=== PATIENT | female | born 1940 | race Caucasian/White ===

== ENCOUNTER 2023-01-20 10:52 | Day surgery (SDC) | payer MEDICARE ==
[2023-01-16 10:32] LABS: ALBUMIN 4.1 G/DL (3.4-5.0); ANION GAP 9 (8-16); BLOOD UREA NITROGEN 29 MG/DL (7-18); BUN/CREATININE RATIO 23.8 (10.0-20.0); CALCIUM 9.2 MG/DL (8.5-10.1); CHLORIDE 107 MMOL/L (99-107); CREATININE 1.22 MG/DL (0.40-0.90); GLUCOSE 106 MG/DL (70-104); POTASSIUM 3.9 MMOL/L (3.5-5.1); SODIUM 142 MMOL/L (135-145); TOTAL CARBON DIOXIDE 26.3 MMOL/L (24-32); eGFR 42 ML/MIN
[2023-01-16 10:37] LABS: APTT 32 SECONDS (22-32)
[2023-01-16 11:00] LABS: BASOPHILS # (AUTO) 0.1 X10'3 (0-0.2); BASOPHILS % (AUTO) 0.9 % (0-1); EOSINOPHILS # (AUTO) 0.1 X10'3 (0-0.9); EOSINOPHILS % (AUTO) 1.6 % (0-6); HEMATOCRIT 42.4 % (35.0-45.0); HEMOGLOBIN 14.3 g/dl (12.0-16.0); LYMPHOCYTES # (AUTO) 0.9 X10'3 (1.1-4.8); LYMPHOCYTES % (AUTO) 14.3 % (21-51); MEAN CORPUSCULAR HEMOGLOBIN 30.4 PG (27.0-31.0); MEAN CORPUSCULAR HGB CONC 33.7 g/dL (33.0-36.5); MEAN CORPUSCULAR VOLUME 90.1 FL (78-98); MEAN PLATELET VOLUME 10.1 FL (7.4-10.4); MONOCYTES # (AUTO) 0.5 X10'3 (0-0.9); MONOCYTES % (AUTO) 8.5 % (2-12); NEUTROPHILS # (AUTO) 4.7 X10'3 (1.8-7.7); NEUTROPHILS % (AUTO) 74.7 % (42-75); PLATELET COUNT 189 X10'3 (140-440); RED BLOOD COUNT 4.71 X10'6 (4.20-5.60); RED CELL DISTRIBUTION WIDTH 17.9 % (11.5-14.5); WHITE BLOOD COUNT 6.3 X10'3 (4.5-11.0)
[~2023-01-20] VITALS: Ht 162.6 cm; Wt 51.1 kg
[2023-01-20] VITALS (9 sets, daily range): BP systolic 121–155; BP diastolic 55–80
[~2023-01-20 10:52] MED LIST: ATOR40TA71 PO; LEVO88TA39 PO; SACU1TAB PO; SPIR25TA5 PO; WARF4TAB69 PO
[2023-01-20] MEDS ORDERED: fentaNYL/PF 50MCG/1 ML 2ML syringe IV ONE (11:15)
[2023-01-20] MEDS ORDERED: normal saline 1000ml 1,000 ML IV SCH (11:15)
[2023-01-20] MEDS ORDERED: MIDAZolam 1mg/ml 10ml vial IV ONE (11:15)
[2023-01-20] MEDS ORDERED: ATOR40TA72 PO (11:17)
[2023-01-20] MEDS ORDERED: FURO20TA4 PO (11:17)
[2023-01-20] MEDS ORDERED: AMIO200T61 PO (11:17)
[2023-01-20] MEDS ORDERED: METO-384 PO (11:17)
[2023-01-20] MEDS ORDERED: SACU1TAB PO (11:19)
[2023-01-20] MEDS ORDERED: SPIR25TA5 PO (11:19)
== END 2023-01-20 14:05 | disposition home or self-care (01) ==
LOC: SSTAY O 10:52
PROVIDERS: ATTEND Student in an Organized Health Care Education/Training Program
DX: I48.0 Paroxysmal atrial fibrillation (principal); E03.9 Hypothyroidism, unspecified; I35.0 Nonrheumatic aortic (valve) stenosis; I11.0 Hypertensive heart disease with heart failure; I50.22 Chronic systolic (congestive) heart failure; I65.23 Occlusion and stenosis of bilateral carotid arteries; Z98.890 Other specified postprocedural states; Z79.899 Other long term (current) drug therapy; Z79.01 Long term (current) use of anticoagulants
CPT/HCPCS: 36415; 80048; 85025; 85610; 85730; 92960; 93005; J2250; J3010; J7030; A4620

== ENCOUNTER 2024-04-14 08:21 | Emergency (ER) | payer MEDICARE ==
[~2024-04-14] VITALS: Ht 165.1 cm; Wt 54.5 kg
[~2024-04-14 08:21] MED LIST changes: +AMI200T PO; -ATOR40TA71 PO; +ATOR40TA72 PO; +FURO20TA4 PO; +METO-384 PO
[2024-04-14 08:22] VITALS: BP 160/95; PULSE 98; RESP 18; TEMP 98.6; O2SAT 98
[2024-04-14] MEDS: ondansetron 4mg rapidly disintigrating tab PO ONE (09:20)
[2024-04-14] MEDS: HYDROcodone/acetaminophen 5mg/325mg tablet PO ONE (09:20)
[2024-04-14] MEDS: TETanus/Pertussis (Acell)/Diphther VAC/PF (Tdap-Adult) 0.5ml syringe IMVAC ONE (09:22)
[2024-04-14] MEDS: LIDOcaine 1% W/epiNEPHrine 1:100,000 20ml vial IJ ONE (09:34)
[2024-04-14] MEDS ORDERED: CEPH500C2 PO (10:51)
== END 2024-04-14 11:46 | disposition home or self-care (01) ==
LOC: ER 08:21
DX: S81.812A Laceration without foreign body, left lower leg, initial encounter (principal); F32.A Depression, unspecified; F12.90 Cannabis use, unspecified, uncomplicated; Z79.899 Other long term (current) drug therapy; Z79.2 Long term (current) use of antibiotics; X58.XXXA Exposure to other specified factors, initial encounter; Y93.89 Activity, other specified; Y92.89 Other specified places as the place of occurrence of the external cause; Y99.8 Other external cause status
CPT/HCPCS: 12005; 73590; 90715; 99283; A6402; G0008; J7030; Z7610; 90471; A6449